=== PATIENT | female | born 1980 | race African-American/Black ===

== ENCOUNTER 2017-09-14 19:18 | Inpatient (IN) ==
[2017-09-14] MEDS ORDERED: SODIUM CHLORIDE 0.9% 1,000 ML IV STA (19:48)
[2017-09-14] MEDS ORDERED: ONDANSETRON 4 MG/2 ML VIAL IV STA (19:48)
[2017-09-14] MEDS ORDERED: MORPHINE 2 MG/1 ML SYRINGE IV STA (19:48)
[2017-09-14] MEDS ORDERED: ONDANSETRON 4 MG/2 ML VIAL ONE (19:50)
[2017-09-14] MEDS ORDERED: MORPHINE 2 MG/1 ML SYRINGE ONE (19:50)
[2017-09-14 19:52] LABS: Basophils # 0.1 10*3/uL (0.0-0.2); Basophils % 0.5 % (0.0-0.8); Eosinophils # 0.2 10*3/uL (0.0-0.87); Eosinophils % 2.3 % (0.00-10.9); Hematocrit 22.9 VOL% (35.7-47.0); Hemoglobin 8.4 GM/DL (12.0-16.0); Immature Granulocytes % 0.3 %; Immature Granulocytes Absolute 0.03 #; Lymphocytes # 3.1 10*3/uL (1.4-4.0); Lymphocytes % 30.3 % (21.3-54.2); Mean Corpuscular HGB Conc 36.7 GM/DL (32-36); Mean Corpuscular Hemoglobin 40 PG (27-34); Mean Platelet Volume 9.2 FL (9.6-12.0); Monocytes # 1.1 10*3/uL (0.11-0.8); NRBC # 0.12 10*3/uL; Neutrophils # 5.6 10*3/uL (1.4-7.4); Neutrophils % 55.6 % (38.7-73.9); Platelet Count 630 T/CUMM (130-400); Red Cell Distribution Width 23.8 % (9.3-17.3); White Blood Count 10.1 T/CUMM (4-12)
[2017-09-14 20:03] LABS: Bilirubin,Direct 0.57 MG/DL (0.0-0.20)
[2017-09-14 20:04] LABS: Albumin 4.2 G/DL (3.4-5.0); Bilirubin,Total 2.7 MG/DL (0.2-1.0); Calcium 9.6 MG/DL (8.5-10.1); Osmolality,Calculated 277.4 MOS/KG (273-304); Potassium 3.9 MMOL/L (3.5-5.1); Total Protein 8.3 G/DL (6.4-8.3)
[2017-09-14 21:31] LABS: Apearance,Urine Slightly Hazy (Clear); Bacteria,Urine Few /HPF (Few); Bilirubin,Urine Negative (Negative); Blood, Urine Small mg/dL (Negative); Glucose,Urine (UA) Negative (Negative); Ketones,Urine Negative (Negative); Mucus,Urine Occasional /LPF (Occasional); Nitrite,Urine Negative (Negative); Protein,Urine 30 MG/DL; RBC,Urine 1 /HPF (0-4); Squamous Epithelial Cell,Urine Occasional /HPF (0-10); Urine Color Yellow (Yellow); Urine Urobilinogen < 2.0 EU/DL (0.2-1.0); WBC,Urine 1 /HPF (0-6)
[2017-09-14] MEDS ORDERED: ONDANSETRON 4 MG/2 ML VIAL IV PRN (22:15)
[2017-09-14] MEDS ORDERED: traZODone 50 MG TABLET PO PRN (22:15)
[2017-09-14] MEDS ORDERED: MORPHINE 2 MG/1 ML SYRINGE IV PRN (23:50)
[2017-09-15] MEDS: SODIUM CHLORIDE 0.9% 1,000 ML IV SCH ×3 (01:42→15:10)
[2017-09-15 07:05] LABS: Basophils % 0.5 % (0.0-0.8); Eosinophils # 0.3 10*3/uL (0.0-0.87); Eosinophils % 3.2 % (0.00-10.9); Hematocrit 19.3 VOL% (35.7-47.0); Hemoglobin 7.2 GM/DL (12.0-16.0); Immature Granulocytes % 0.5 %; Immature Granulocytes Absolute 0.04 #; Lymphocytes # 2.4 10*3/uL (1.4-4.0); Lymphocytes % 27.6 % (21.3-54.2); Mean Corpuscular HGB Conc 37.3 GM/DL (32-36); Mean Corpuscular Hemoglobin 39 PG (27-34); Mean Corpuscular Volume 104.9 FL (87-102); Mean Platelet Volume 9.3 FL (9.6-12.0); Monocytes # 1.2 10*3/uL (0.11-0.8); Monocytes % 13.5 % (1.7-12.7); NRBC # 0.09 10*3/uL; Neutrophils # 4.7 10*3/uL (1.4-7.4); Neutrophils % 54.7 % (38.7-73.9); Platelet Count 549 T/CUMM (130-400); Red Blood Count 1.84 MC/CUMM (3.8-5.5); Red Cell Distribution Width 22.8 % (9.3-17.3); White Blood Count 8.5 T/CUMM (4-12)
[2017-09-15 07:41] LABS: Albumin 3.4 G/DL (3.4-5.0); Bilirubin,Total 2.6 MG/DL (0.2-1.0); Calcium 8.7 MG/DL (8.5-10.1); Osmolality,Calculated 280.1 MOS/KG (273-304); Potassium 4.5 MMOL/L (3.5-5.1); Total Protein 6.8 G/DL (6.4-8.3)
[2017-09-15 07:57] LABS: Anisocytosis 1+
[2017-09-15 07:58] LABS: Macrocytosis 1+; Platelet Estimate Increased; Target Cells Few
[2017-09-15 07:59] LABS: Ovalocytes Few; Sickle Cells Few
[2017-09-15 08:00] LABS: Howell-Jolly Bodies Slight; Pappenheimer Bodies Slight
[2017-09-15] MEDS ORDERED: LORazepam 1 MG TABLET PO PRN (08:28)
[2017-09-15] MEDS: ENOXAPARIN 40 MG/0.4 ML SYRINGE SUBCUT SCH (09:34)
[2017-09-15] MEDS: FOLIC ACID 1 MG TABLET PO SCH (09:35)
[2017-09-15] MEDS: HYDROXYUREA 500 MG CAPSULE PO SCH (09:35)
[2017-09-15] MEDS ORDERED: SODIUM CHLORIDE 0.9% 1,000 ML IV PRN (09:38)
[2017-09-15] MEDS ORDERED: ACETAMINOPHEN 325 MG TABLET PO PRN (13:48)
[2017-09-16] MEDS: SODIUM CHLORIDE 0.9% 1,000 ML IV SCH ×2 (00:55→07:56)
[2017-09-16 04:29] LABS: Basophils % 0.5 % (0.0-0.8); Eosinophils # 0.3 10*3/uL (0.0-0.87); Eosinophils % 3.8 % (0.00-10.9); Hematocrit 27.9 VOL% (35.7-47.0); Hemoglobin 10.1 GM/DL (12.0-16.0); Immature Granulocytes % 0.5 %; Immature Granulocytes Absolute 0.04 #; Lymphocytes # 2.4 10*3/uL (1.4-4.0); Lymphocytes % 28.8 % (21.3-54.2); Mean Corpuscular HGB Conc 36.2 GM/DL (32-36); Mean Corpuscular Hemoglobin 35 PG (27-34); Mean Corpuscular Volume 97.2 FL (87-102); Mean Platelet Volume 9.6 FL (9.6-12.0); Monocytes % 12.2 % (1.7-12.7); NRBC # 0.06 10*3/uL; Neutrophils # 4.6 10*3/uL (1.4-7.4); Neutrophils % 54.2 % (38.7-73.9); Platelet Count 578 T/CUMM (130-400); Red Blood Count 2.87 MC/CUMM (3.8-5.5); Red Cell Distribution Width 22.9 % (9.3-17.3); White Blood Count 8.4 T/CUMM (4-12)
[2017-09-16 05:08] LABS: Elliptocytes Few; Giant Platelets Few; Howell-Jolly Bodies Slight; Hypochromasia 1+; Macrocytosis Slight; Platelet Estimate Increased; Polychromasia Slight; Sickle Cells Few; Target Cells Few
[2017-09-16] MEDS: ENOXAPARIN 40 MG/0.4 ML SYRINGE SUBCUT SCH (08:47)
[2017-09-16] MEDS: FOLIC ACID 1 MG TABLET PO SCH (08:47)
[2017-09-16] MEDS: HYDROXYUREA 500 MG CAPSULE PO SCH (08:47)
[2017-09-16 08:49] VITALS: BP 94/54
== END 2017-09-16 12:35 | disposition home or self-care (01) | DRG 662 ==
LOC: EDBD → EDUNIT# → N.ED 19:18 → N.EDINP 22:02 → N.4E 23:15
PROVIDERS: ADMIT Internal Medicine; ATTEND Internal Medicine

== ENCOUNTER 2019-06-28 05:08 | Inpatient (IN) ==
[2019-06-28 05:50] LABS: Basophils # 0.1 10*3/uL (0.0-0.2); Basophils % 0.9 % (0.0-0.8); Eosinophils # 0.4 10*3/uL (0.0-0.87); Eosinophils % 4.2 % (0.00-10.9); Hematocrit 21.6 VOL% (35.7-47.0); Hemoglobin 7.9 GM/DL (12.0-16.0); Immature Granulocytes % 0.6 %; Immature Granulocytes Absolute 0.05 #; Lymphocytes # 3.1 10*3/uL (1.4-4.0); Lymphocytes % 34.7 % (21.3-54.2); Mean Corpuscular HGB Conc 36.6 GM/DL (32-36); Mean Corpuscular Volume 110.8 FL (87-102); Mean Platelet Volume 9.1 FL (9.6-12.0); Monocytes % 11.4 % (1.7-12.7); NRBC # 0.07 10*3/uL; Neutrophils % 48.2 % (38.7-73.9); Platelet Count 597 T/CUMM (130-400); Red Blood Count 1.95 MC/CUMM (3.8-5.5); Red Cell Distribution Width 22.2 % (9.3-17.3); White Blood Count 8.8 T/CUMM (4-12)
[2019-06-28] MEDS ORDERED: SODIUM CHLORIDE 0.9% 1,000 ML IV STA ×2 (06:05→06:46)
[2019-06-28] MEDS ORDERED: HYDROmorphone 2 MG/1 ML VIAL IV STA ×2 (06:05→06:44)
[2019-06-28] MEDS ORDERED: ONDANSETRON 4 MG/2 ML VIAL IV STA (06:05)
[2019-06-28 06:12] LABS: Albumin 3.9 G/DL (3.4-5.0); Bilirubin,Total 2.2 MG/DL (0.2-1.0); Osmolality,Calculated 276.4 MOS/KG (273-304); Total Protein 7.6 G/DL (6.4-8.3)
[2019-06-28 06:30] LABS: Platelet Estimate Increased
[2019-06-28 06:31] LABS: Polychromasia 1+; Sickle Cells 1+
[2019-06-28 06:32] LABS: Hypochromasia 1+; Microcytosis 1+
[2019-06-28] MEDS ORDERED: PROMETHAZINE 25 MG/1 ML VIAL IM STA (07:55)
[2019-06-28] MEDS ORDERED: PROMETHAZINE 25 MG/1 ML VIAL ONE (07:57)
[2019-06-28] MEDS ORDERED: ONDANSETRON 4 MG/2 ML VIAL IV PRN (07:58)
[2019-06-28] MEDS ORDERED: ACETAMINOPHEN 325 MG TABLET PO PRN (07:58)
[2019-06-28] MEDS ORDERED: PROMETHAZINE 25 MG/1 ML VIAL IM PRN (07:58)
[2019-06-28] MEDS ORDERED: HYDROmorphone 2 MG/1 ML VIAL IV PRN (08:02)
[2019-06-28] MEDS ORDERED: TRAMADOL 100 MG PO PRN (08:02)
[2019-06-28] MEDS: SODIUM CHLORIDE 0.9% 1,000 ML IV SCH ×4 (08:10→17:32)
[2019-06-28] MEDS ORDERED: PANTOPRAZOLE 40 MG TABLET PO SCH (09:00)
[2019-06-28] MEDS: HYDROXYUREA 500 MG CAPSULE PO SCH (09:51)
[2019-06-28] MEDS: ENOXAPARIN 40 MG/0.4 ML SYRINGE SUBCUT SCH (09:51)
[2019-06-28] MEDS: FOLIC ACID 1 MG TABLET PO SCH (09:51)
[2019-06-28] MEDS: PANTOPRAZOLE 40 MG TABLET PO SCH ×2 (09:52→20:27)
[2019-06-28 11:10] LABS: Apearance,Urine Slightly Hazy (Clear); Bacteria,Urine Occasional /HPF (Few); Bilirubin,Urine Negative (Negative); Blood, Urine Moderate mg/dL (Negative); Glucose,Urine (UA) Negative (Negative); Ketones,Urine Negative (Negative); Mucus,Urine Occasional /LPF (Occasional); Nitrite,Urine Negative (Negative); Protein,Urine Negative; RBC,Urine <1 /HPF (0-4); Squamous Epithelial Cell,Urine Few /HPF (0-10); Urine Color Yellow (Yellow); Urine Specific Gravity 1.009 (1.001-1.035); Urine Urobilinogen < 2.0 EU/DL (0.2-1.0); WBC,Urine 1 /HPF (0-6)
[2019-06-28] MEDS ORDERED: SODIUM CHLORIDE 0.9% 1,000 ML IV PRN (14:37)
[2019-06-29] LABS: Hematocrit 24.8 VOL% (35.7-47.0); Hemoglobin 8.9 GM/DL (12.0-16.0)
[2019-06-29 05:37] LABS: Basophils # 0.1 10*3/uL (0.0-0.2); Basophils % 0.7 % (0.0-0.8); Eosinophils # 0.2 10*3/uL (0.0-0.87); Eosinophils % 2.8 % (0.00-10.9); Hematocrit 25.2 VOL% (35.7-47.0); Hemoglobin 8.9 GM/DL (12.0-16.0); Immature Granulocytes % 0.6 %; Immature Granulocytes Absolute 0.05 #; Lymphocytes # 2.2 10*3/uL (1.4-4.0); Lymphocytes % 25.4 % (21.3-54.2); Mean Corpuscular HGB Conc 35.3 GM/DL (32-36); Mean Platelet Volume 9.4 FL (9.6-12.0); Monocytes % 9.6 % (1.7-12.7); NRBC # 0.07 10*3/uL; Neutrophils % 60.9 % (38.7-73.9); Platelet Count 448 T/CUMM (130-400); Red Cell Distribution Width 19.3 % (9.3-17.3); White Blood Count 8.6 T/CUMM (4-12)
[2019-06-29 05:50] LABS: Albumin 3.2 G/DL (3.4-5.0); Bilirubin,Total 1.3 MG/DL (0.2-1.0); Calcium 8.2 MG/DL (8.5-10.1); Osmolality,Calculated 283.7 MOS/KG (273-304); Total Protein 6.3 G/DL (6.4-8.3)
[2019-06-29 07:27] VITALS: BP 122/59
[2019-06-29] MEDS ORDERED: cefTRIAXone 1,000 MG in SYRINGE 1 EACH IV ONE (07:48)
[2019-06-29] MEDS ORDERED: AZITHROMYCIN 250 MG TABLET PO ONE (07:49)
[2019-06-29] MEDS ORDERED: MONTELUKAST 10 MG TABLET PO ONE (07:49)
[2019-06-29] MEDS ORDERED: DEXAMETHASONE 4 MG/1 ML VIAL IM ONE (07:51)
[2019-06-29] MEDS: FOLIC ACID 1 MG TABLET PO SCH (08:37)
[2019-06-29] MEDS: HYDROXYUREA 500 MG CAPSULE PO SCH (08:37)
[2019-06-29] MEDS: ENOXAPARIN 40 MG/0.4 ML SYRINGE SUBCUT SCH (08:37)
[2019-06-29] MEDS: PANTOPRAZOLE 40 MG TABLET PO SCH (08:37)
[2019-06-29] MEDS ORDERED: DEXAMETHASONE 4 MG/1 ML VIAL IM SCH (09:00)
[2019-06-29] MEDS ORDERED: methylPREDNISolone ACETATE 40 MG/1 ML VIAL IM ONE (09:00)
[2019-06-29] MEDS ORDERED: FLUTICASONE 50 MCG NASAL SPRAY 16 GM BOTTLE BOTH NARES SCH (09:00)
[2019-06-29] MEDS: SODIUM CHLORIDE 0.9% 1,000 ML IV SCH (09:07)
== END 2019-06-29 09:17 | disposition home or self-care (01) | DRG 662 ==
LOC: N.ED 05:08 → N.EDINP 05:08 → N.2W 08:34
PROVIDERS: ADMIT Internal Medicine; ATTEND Internal Medicine

== ENCOUNTER 2019-11-24 10:41 | Observation (INO) ==
[2019-11-24] MEDS ORDERED: ONDANSETRON 4 MG/2 ML VIAL IV STA (11:17)
[2019-11-24] MEDS ORDERED: HYDROmorphone 2 MG/1 ML VIAL IV STA ×2 (11:17→12:30)
[2019-11-24] MEDS ORDERED: SODIUM CHLORIDE 0.9% 1,000 ML IV STA (11:18)
[2019-11-24 12:15] LABS: Basophils # 0.1 10*3/uL (0.0-0.2); Basophils % 0.6 % (0.0-0.8); Eosinophils # 0.2 10*3/uL (0.0-0.87); Eosinophils % 1.9 % (0.00-10.9); Hematocrit 21.7 VOL% (35.7-47.0); Hemoglobin 7.5 GM/DL (12.0-16.0); Immature Granulocytes % 1.7 %; Lymphocytes # 2.3 10*3/uL (1.4-4.0); Lymphocytes % 20.1 % (21.3-54.2); Mean Corpuscular HGB Conc 34.6 GM/DL (32-36); Mean Corpuscular Volume 113.6 FL (87-102); Mean Platelet Volume 9.2 FL (9.6-12.0); Monocytes % 11.5 % (1.7-12.7); NRBC # 0.16 10*3/uL; Neutrophils % 64.2 % (38.7-73.9); Platelet Count 525 T/CUMM (130-400); Red Blood Count 1.91 MC/CUMM (3.8-5.5); Red Cell Distribution Width 22.8 % (9.3-17.3); White Blood Count 11.6 T/CUMM (4-12)
[2019-11-24 12:27] LABS: Albumin 3.9 G/DL (3.4-5.0); Bilirubin,Total 2.3 MG/DL (0.2-1.0); Calcium 9.1 MG/DL (8.5-10.1); Osmolality,Calculated 275.4 MOS/KG (273-304); Total Protein 7.7 G/DL (6.4-8.3)
[2019-11-24 12:44] LABS: Apearance,Urine CLEAR (Clear); Bacteria,Urine Few /HPF (Few); Bilirubin,Urine Negative (Negative); Blood, Urine Small mg/dL (Negative); Glucose,Urine (UA) Negative (Negative); Ketones,Urine Negative (Negative); Nitrite,Urine Negative (Negative); Protein,Urine Negative; RBC,Urine 1 /HPF (0-4); Squamous Epithelial Cell,Urine Occasional /HPF (0-10); Urine Color Yellow (Yellow); Urine Specific Gravity 1.004 (1.001-1.035); Urine Urobilinogen < 2.0 EU/DL (0.2-1.0); WBC,Urine 1 /HPF (0-6)
[2019-11-24 12:44] LABS: Platelet Estimate Increased
[2019-11-24 12:45] LABS: Anisocytosis 2+; Macrocytosis 2+; Poikilocytosis 2+; Polychromasia 1+
[2019-11-24 12:46] LABS: Sickle Cells 2+
[2019-11-24 13:05] LABS: Barbiturates Screen,Urine Negative (Negative); Benzodiazepines Screen,Urine Negative (Negative); Cannabinoid Screen,Urine Negative (Negative); Opiate Screen,Urine Negative (Negative); Phencyclidine Screen,Urine Negative (Negative)
[2019-11-24] MEDS ORDERED: NALOXONE 0.4 MG/ML VIAL IV PRN (13:47)
[2019-11-24] MEDS ORDERED: SODIUM CHLORIDE 0.9% 1,000 ML IV PRN (13:47)
[2019-11-24] MEDS ORDERED: GLUCAGON 1 MG VIAL IM PRN (13:48)
[2019-11-24] MEDS ORDERED: ACETAMINOPHEN 325 MG TABLET PO PRN (13:48)
[2019-11-24] MEDS ORDERED: DEXTROSE 10% 250 ML BAG IV PRN (13:48)
[2019-11-24] MEDS ORDERED: HYDROmorphone PCA 30 MG/30 ML SYRINGE IV SCH (14:00)
[2019-11-24] MEDS: SODIUM CHLORIDE 0.9% 1,000 ML IV SCH (23:01)
[2019-11-25 00:08] LABS: Hematocrit 27.3 VOL% (35.7-47.0); Hemoglobin 9.5 GM/DL (12.0-16.0)
[2019-11-25 06:20] LABS: Basophils # 0.1 10*3/uL (0.0-0.2); Basophils % 0.7 % (0.0-0.8); Eosinophils # 0.3 10*3/uL (0.0-0.87); Eosinophils % 3.3 % (0.00-10.9); Hematocrit 26.6 VOL% (35.7-47.0); Hemoglobin 9.6 GM/DL (12.0-16.0); Immature Granulocytes % 0.8 %; Immature Granulocytes Absolute 0.07 #; Lymphocytes # 2.4 10*3/uL (1.4-4.0); Lymphocytes % 26.4 % (21.3-54.2); Mean Corpuscular HGB Conc 36.1 GM/DL (32-36); Mean Corpuscular Volume 101.9 FL (87-102); Mean Platelet Volume 9.3 FL (9.6-12.0); NRBC # 0.12 10*3/uL; Neutrophils % 56.8 % (38.7-73.9); Platelet Count 515 T/CUMM (130-400); Red Blood Count 2.61 MC/CUMM (3.8-5.5); Red Cell Distribution Width 22.8 % (9.3-17.3)
[2019-11-25 06:47] LABS: Hypochromasia 1+; Macrocytosis Slight; Platelet Estimate Adequate; Polychromasia Slight
[2019-11-25 06:48] LABS: Pappenheimer Bodies Slight; Sickle Cells 1+
[2019-11-25 07:02] LABS: Calcium 8.5 MG/DL (8.5-10.1); Osmolality,Calculated 271.5 MOS/KG (273-304); Thyroid Stimulating Hormone 1.66 uIU/ml (0.358-3.74)
[2019-11-25] MEDS ORDERED: PANTOPRAZOLE 40 MG TABLET PO SCH (09:00)
[2019-11-25] MEDS: SODIUM CHLORIDE 0.9% 1,000 ML IV SCH (10:10)
[2019-11-25 10:52] VITALS: BP 105/58
[2019-11-25] MEDS ORDERED: HYDROmorphone PCA 30 MG/30 ML SYRINGE IV SCH (14:00)
== END 2019-11-25 12:55 | disposition home or self-care (01) ==
LOC: EDBD → EDUNIT# → N.ED 10:41 → N.EDINP 10:41 → N.TELEN 14:56
PROVIDERS: ADMIT Internal Medicine; ATTEND Internal Medicine

== ENCOUNTER 2019-12-02 03:07 | Inpatient (IN) ==
[2019-12-02] MEDS ORDERED: SODIUM CHLORIDE 0.9% 1,000 ML IV STA (03:33)
[2019-12-02 03:51] LABS: Basophils # 0.1 10*3/uL (0.0-0.2); Basophils % 0.6 % (0.0-0.8); Eosinophils % 0.3 % (0.00-10.9); Hematocrit 25.6 VOL% (35.7-47.0); Hemoglobin 8.6 GM/DL (12.0-16.0); Immature Granulocytes % 3.3 %; Immature Granulocytes Absolute 0.52 #; Lymphocytes # 2.1 10*3/uL (1.4-4.0); Lymphocytes % 13.4 % (21.3-54.2); Mean Corpuscular HGB Conc 33.6 GM/DL (32-36); Mean Corpuscular Volume 101.6 FL (87-102); Monocytes % 9.1 % (1.7-12.7); NRBC # 0.04 10*3/uL; Neutrophils % 73.3 % (38.7-73.9); Platelet Count 597 T/CUMM (130-400); Red Blood Count 2.52 MC/CUMM (3.8-5.5); Red Cell Distribution Width 19.4 % (9.3-17.3); White Blood Count 15.9 T/CUMM (4-12)
[2019-12-02] MEDS ORDERED: MORPHINE 4 MG/1 ML VIAL ONE (04:12)
[2019-12-02] MEDS ORDERED: ONDANSETRON 4 MG/2 ML VIAL ONE (04:12)
[2019-12-02] MEDS ORDERED: KETOROLAC 30 MG/1 ML VIAL ONE (04:12)
[2019-12-02 04:13] LABS: Albumin 4.2 G/DL (3.4-5.0); Bilirubin,Total 1.8 MG/DL (0.2-1.0); Calcium 9.3 MG/DL (8.5-10.1); Osmolality,Calculated 280.7 MOS/KG (273-304); Total Protein 8.7 G/DL (6.4-8.3)
[2019-12-02] MEDS ORDERED: ONDANSETRON 4 MG/2 ML VIAL IV ONE (04:13)
[2019-12-02] MEDS ORDERED: KETOROLAC 30 MG/1 ML VIAL IV STA (04:13)
[2019-12-02] MEDS ORDERED: MORPHINE 4 MG/1 ML VIAL IV STA ×2 (04:13→04:35)
[2019-12-02 04:56] LABS: Lymphocytes 16 % (20-55); Metamyelocytes 1 %; Segmented Neutrophils 74 % (50-85); Total Cells Counted 100
[2019-12-02 05:07] LABS: Hypochromasia 2+; Pappenheimer Bodies 1+; Platelet Estimate Increased; Stomatocytes Few; Target Cells Few
[2019-12-02 05:08] LABS: Anisocytosis 2+; Microcytosis 2+; Ovalocytes 2+; Polychromasia Few; Sickle Cells Few
[2019-12-02] MEDS ORDERED: HYDROmorphone 2 MG/1 ML VIAL IV STA (05:12)
[2019-12-02] MEDS ORDERED: GLUCAGON 1 MG VIAL IM PRN (05:52)
[2019-12-02] MEDS ORDERED: ZALEPLON 5 MG CAPSULE PO PRN (05:52)
[2019-12-02] MEDS ORDERED: SODIUM CHLORIDE 0.9% 1,000 ML IV PRN (05:58)
[2019-12-02] MEDS ORDERED: NALOXONE 0.4 MG/ML VIAL IV PRN (05:58)
[2019-12-02] MEDS ORDERED: HYDROmorphone PCA 30 MG/30 ML SYRINGE IV SCH (06:00)
[2019-12-02] MEDS ORDERED: POTASSIUM CHLORIDE 20 MEQ TABLET PO ONE (06:00)
[2019-12-02] MEDS ORDERED: DEXTROSE 10% 250 ML BAG IV PRN (06:00)
[2019-12-02] MEDS: SODIUM CHLORIDE 0.9% 1,000 ML IV SCH ×3 (08:24→23:45)
[2019-12-02] MEDS: INSULIN REGULAR 100 UNIT/ML SUBCUT SCH ×4 (08:32→20:54)
[2019-12-02] MEDS ORDERED: CETIRIZINE PSEUDOEPHEDRINE PO PRN (08:34)
[2019-12-02] MEDS ORDERED: FLUTICASONE 50 MCG NASAL SPRAY 16 GM BOTTLE BOTH NARES PRN (08:34)
[2019-12-02] MEDS: FOLIC ACID 1 MG TABLET PO SCH (09:19)
[2019-12-02] MEDS: ENOXAPARIN 40 MG/0.4 ML SYRINGE SUBCUT SCH (09:19)
[2019-12-02] MEDS: PANTOPRAZOLE 40 MG TABLET PO SCH (09:19)
[2019-12-02] MEDS: HYDROXYUREA 500 MG CAPSULE PO SCH (09:23)
[2019-12-02] MEDS ORDERED: ALBUTEROL/IPRATROPIUM 3 ML NEB RESP TX PRN (11:20)
[2019-12-02 12:52] LABS: Apearance,Urine CLEAR (Clear); Bacteria,Urine Occasional /HPF (Few); Bilirubin,Urine Negative (Negative); Blood, Urine Negative (Negative); Glucose,Urine (UA) Negative (Negative); Hyaline Casts,Urine 1 /LPF (0-3); Ketones,Urine Negative (Negative); Mucus,Urine Occasional /LPF (Occasional); Nitrite,Urine Negative (Negative); Protein,Urine Negative; Squamous Epithelial Cell,Urine Occasional /HPF (0-10); Urine Color Yellow (Yellow); Urine Specific Gravity 1.009 (1.001-1.035); Urine Urobilinogen < 2.0 EU/DL (0.2-1.0)
[2019-12-02] MEDS: ONDANSETRON 4 MG/2 ML VIAL IV PRN (17:46)
[2019-12-02] MEDS: LORazepam 1 MG TABLET PO PRN (20:55)
[2019-12-02] MEDS: ACETAMINOPHEN 325 MG TABLET PO PRN (20:55)
[2019-12-03] MEDS ORDERED: HYDROmorphone PCA 30 MG/30 ML SYRINGE IV SCH (06:00)
[2019-12-03] MEDS: SODIUM CHLORIDE 0.9% 1,000 ML IV SCH ×3 (06:09→17:29)
[2019-12-03 07:43] LABS: Basophils # 0.1 10*3/uL (0.0-0.2); Basophils % 0.8 % (0.0-0.8); Eosinophils # 0.2 10*3/uL (0.0-0.87); Eosinophils % 1.5 % (0.00-10.9); Hematocrit 23.1 VOL% (35.7-47.0); Hemoglobin 7.9 GM/DL (12.0-16.0); Immature Granulocytes % 1.7 %; Immature Granulocytes Absolute 0.23 #; Lymphocytes % 15.4 % (21.3-54.2); Mean Corpuscular HGB Conc 34.2 GM/DL (32-36); Mean Corpuscular Volume 100.9 FL (87-102); Mean Platelet Volume 9.2 FL (9.6-12.0); Monocytes % 10.3 % (1.7-12.7); NRBC # 0.23 10*3/uL; Neutrophils % 70.3 % (38.7-73.9); Platelet Count 495 T/CUMM (130-400); Red Blood Count 2.29 MC/CUMM (3.8-5.5); White Blood Count 13.2 T/CUMM (4-12)
[2019-12-03 08:19] LABS: Albumin 3.3 G/DL (3.4-5.0); Bilirubin,Total 2.3 MG/DL (0.2-1.0); Calcium 8.9 MG/DL (8.5-10.1); Osmolality,Calculated 270.8 MOS/KG (273-304); Total Protein 7.4 G/DL (6.4-8.3)
[2019-12-03] MEDS: FOLIC ACID 1 MG TABLET PO SCH (08:45)
[2019-12-03] MEDS: ENOXAPARIN 40 MG/0.4 ML SYRINGE SUBCUT SCH (08:45)
[2019-12-03] MEDS: PANTOPRAZOLE 40 MG TABLET PO SCH (08:45)
[2019-12-03] MEDS: HYDROXYUREA 500 MG CAPSULE PO SCH (08:50)
[2019-12-03] MEDS: INSULIN REGULAR 100 UNIT/ML SUBCUT SCH ×4 (08:51→22:05)
[2019-12-03] MEDS ORDERED: POTASSIUM CHLORIDE 20 MEQ TABLET PO ONE (10:29)
[2019-12-03] MEDS ORDERED: SODIUM CHLORIDE 0.9% 1,000 ML IV PRN (10:58)
[2019-12-03] MEDS: HYDROmorphone PCA 30 MG/30 ML SYRINGE IV SCH (11:13)
[2019-12-03] MEDS: ACETAMINOPHEN 325 MG TABLET PO PRN (14:13)
[2019-12-03] MEDS: ONDANSETRON 4 MG/2 ML VIAL IV PRN (14:14)
[2019-12-03 17:56] LABS: Hematocrit 28.1 VOL% (35.7-47.0); Hemoglobin 9.4 GM/DL (12.0-16.0)
[2019-12-03] MEDS: LORazepam 1 MG TABLET PO PRN (23:08)
[2019-12-04] MEDS: SODIUM CHLORIDE 0.9% 1,000 ML IV SCH ×3 (01:35→17:23)
[2019-12-04] MEDS: INSULIN REGULAR 100 UNIT/ML SUBCUT SCH ×4 (08:02→21:14)
[2019-12-04] MEDS: HYDROmorphone PCA 30 MG/30 ML SYRINGE IV SCH ×2 (09:30→12:23)
[2019-12-04] MEDS: HYDROXYUREA 500 MG CAPSULE PO SCH (09:40)
[2019-12-04] MEDS: ENOXAPARIN 40 MG/0.4 ML SYRINGE SUBCUT SCH (09:40)
[2019-12-04] MEDS: PANTOPRAZOLE 40 MG TABLET PO SCH (09:40)
[2019-12-04] MEDS: FOLIC ACID 1 MG TABLET PO SCH (09:40)
[2019-12-04] MEDS: ACETAMINOPHEN 325 MG TABLET PO PRN (12:28)
[2019-12-05] MEDS: SODIUM CHLORIDE 0.9% 1,000 ML IV SCH ×3 (02:01→18:09)
[2019-12-05] MEDS: INSULIN REGULAR 100 UNIT/ML SUBCUT SCH ×4 (07:43→22:05)
[2019-12-05] MEDS: ENOXAPARIN 40 MG/0.4 ML SYRINGE SUBCUT SCH (09:52)
[2019-12-05] MEDS: HYDROXYUREA 500 MG CAPSULE PO SCH (09:52)
[2019-12-05] MEDS: ACETAMINOPHEN 325 MG TABLET PO PRN (09:52)
[2019-12-05] MEDS: FOLIC ACID 1 MG TABLET PO SCH (09:52)
[2019-12-05] MEDS: PANTOPRAZOLE 40 MG TABLET PO SCH (09:52)
[2019-12-05] MEDS: KETOROLAC 15 MG/1 ML VIAL IV SCH ×3 (09:53→22:02)
[2019-12-05] MEDS: HYDROmorphone PCA 30 MG/30 ML SYRINGE IV SCH ×3 (10:07→21:57)
[2019-12-05 12:10] LABS: Troponin I < 0.015 NG/ML (0.00-0.045)
[2019-12-05 14:58] LABS: Troponin I < 0.015 NG/ML (0.00-0.045)
[2019-12-05] MEDS: ONDANSETRON 4 MG/2 ML VIAL IV PRN (15:10)
[2019-12-06] MEDS: SODIUM CHLORIDE 0.9% 1,000 ML IV SCH ×2 (02:11→12:23)
[2019-12-06] MEDS: KETOROLAC 15 MG/1 ML VIAL IV SCH ×4 (04:32→20:59)
[2019-12-06 06:11] LABS: Basophils % 0.2 % (0.0-0.8); Eosinophils # 0.3 10*3/uL (0.0-0.87); Eosinophils % 3.4 % (0.00-10.9); Hematocrit 21.1 VOL% (35.7-47.0); Hemoglobin 7.1 GM/DL (12.0-16.0); Immature Granulocytes % 1.6 %; Immature Granulocytes Absolute 0.14 #; Lymphocytes # 1.4 10*3/uL (1.4-4.0); Lymphocytes % 15.6 % (21.3-54.2); Mean Corpuscular HGB Conc 33.6 GM/DL (32-36); Mean Corpuscular Volume 98.6 FL (87-102); Mean Platelet Volume 9.3 FL (9.6-12.0); Monocytes % 7.7 % (1.7-12.7); Neutrophils % 71.5 % (38.7-73.9); Platelet Count 399 T/CUMM (130-400); Red Blood Count 2.14 MC/CUMM (3.8-5.5); Red Cell Distribution Width 18.3 % (9.3-17.3)
[2019-12-06 06:30] LABS: Calcium 8.4 MG/DL (8.5-10.1); Osmolality,Calculated 272.7 MOS/KG (273-304)
[2019-12-06] MEDS ORDERED: SODIUM CHLORIDE 0.9% 1,000 ML IV PRN (07:53)
[2019-12-06] MEDS: INSULIN REGULAR 100 UNIT/ML SUBCUT SCH ×4 (08:45→21:47)
[2019-12-06] MEDS: ENOXAPARIN 40 MG/0.4 ML SYRINGE SUBCUT SCH (08:47)
[2019-12-06] MEDS: FOLIC ACID 1 MG TABLET PO SCH (08:47)
[2019-12-06] MEDS: PANTOPRAZOLE 40 MG TABLET PO SCH (08:47)
[2019-12-06] MEDS: HYDROXYUREA 500 MG CAPSULE PO SCH (08:49)
[2019-12-06 17:38] LABS: Hematocrit 27.9 VOL% (35.7-47.0); Hemoglobin 9.1 GM/DL (12.0-16.0)
[2019-12-06] MEDS: HYDROmorphone PCA 30 MG/30 ML SYRINGE IV SCH (18:58)
[2019-12-07] MEDS: KETOROLAC 15 MG/1 ML VIAL IV SCH ×2 (03:31→10:01)
[2019-12-07] MEDS: SODIUM CHLORIDE 0.9% 1,000 ML IV SCH ×3 (03:35→10:59)
[2019-12-07 04:36] LABS: Basophils % 0.5 % (0.0-0.8); Eosinophils # 0.3 10*3/uL (0.0-0.87); Eosinophils % 3.5 % (0.00-10.9); Hematocrit 26.7 VOL% (35.7-47.0); Hemoglobin 9.1 GM/DL (12.0-16.0); Immature Granulocytes % 1.1 %; Immature Granulocytes Absolute 0.09 #; Lymphocytes # 1.2 10*3/uL (1.4-4.0); Lymphocytes % 14.5 % (21.3-54.2); Mean Corpuscular HGB Conc 34.1 GM/DL (32-36); Mean Corpuscular Volume 91.4 FL (87-102); Mean Platelet Volume 8.8 FL (9.6-12.0); Monocytes % 8.6 % (1.7-12.7); NRBC # 0.04 10*3/uL; Neutrophils % 71.8 % (38.7-73.9); Platelet Count 416 T/CUMM (130-400); Red Blood Count 2.92 MC/CUMM (3.8-5.5); White Blood Count 8.5 T/CUMM (4-12)
[2019-12-07 04:58] LABS: Calcium 8.7 MG/DL (8.5-10.1); Osmolality,Calculated 272.7 MOS/KG (273-304)
[2019-12-07] MEDS: INSULIN REGULAR 100 UNIT/ML SUBCUT SCH (07:54)
[2019-12-07 08:16] VITALS: BP 127/72
[2019-12-07] MEDS: HYDROXYUREA 500 MG CAPSULE PO SCH (09:04)
[2019-12-07] MEDS: ENOXAPARIN 40 MG/0.4 ML SYRINGE SUBCUT SCH (09:04)
[2019-12-07] MEDS: FOLIC ACID 1 MG TABLET PO SCH (09:04)
[2019-12-07] MEDS: PANTOPRAZOLE 40 MG TABLET PO SCH (09:04)
== END 2019-12-07 11:50 | disposition home or self-care (01) | DRG 662 ==
LOC: N.ED 03:07 → N.EDINP 03:07 → N.TELEN 06:57
PROVIDERS: ADMIT Internal Medicine; ATTEND Internal Medicine